=== PATIENT | female | born 1980 | race Caucasian/White ===

== ENCOUNTER → 2017-12-03 | Outpatient (REF) | payer BC ==
[~2017-12-03] MED LIST: DIV250ER PO; DIVA500T98 PO; DOCU-416 PO; FLUO40CA67 PO; HYDR-385 PO; ONDA4TAB PO
[2017-12-03 14:19] LABS: PLATELET COUNT, AUTOMATED 209 K/uL (150-450)
== END ==
LOC: ZZSENDIN 14:06
PROVIDERS: ATTEND Physician Assistant
DX: L03.113 Cellulitis of right upper limb (principal)
CPT/HCPCS: 85025; 85651